=== PATIENT | female | born 1970 | race African-American/Black ===

== ENCOUNTER 2021-02-09 07:56 | Outpatient (REF) | payer OTHER, SELFPAY ==
--- NOTE | ~2021-02-09 | MM_ITS ---
EXAMINATION: MM SCREENING DIGITAL BREAST TOMOSYNTHESIS, BILATERAL CLINICAL INFORMATION: Screening. Asymptomatic. The lifetime risk of breast cancer based on the Tyrer-Cuzick Model is 10%. COMPARISON: Mammography: 02/04/2020, 01/29/2019, 01/08/2018 TECHNIQUE: Digital breast tomosynthesis is performed in both the craniocaudal and mediolateral oblique views along with computer-aided detection (CAD). Synthesized 2D images are generated from the tomosynthesis. FINDINGS: There are scattered areas of fibroglandular density (ACR BI-RADS breast composition Category b). Parenchymal pattern is similar to prior studies. There is stable smooth nodule central right breast mid depth. Again, there are numerous calcifications greatest regional upper outer left breast and regional central and inner right breast. There is no interval mass or architectural abnormality or abnormal calcifications. The axilla and skin contours are unremarkable. MM/MM tomosynthesis screening BI IMPRESSION: No significant changes from prior exams. ASSESSMENT: BI-RADS 2: Benign RECOMMENDATION: Routine annual mammography screening. This patient's information was entered into a reminder system with a target due date for their next mammogram.
== END 2021-02-09 07:57 | disposition home or self-care (01) ==
LOC: HO.MAMMO 07:56
PROVIDERS: PCP Internal Medicine; Visit Provider Internal Medicine
DX: Z12.31 Encounter for screening mammogram for malignant neoplasm of breast (principal)
CPT/HCPCS: 77063; 77067

== ENCOUNTER 2022-02-15 07:48 | Outpatient (REF) | payer OTHER, SELFPAY ==
--- NOTE | ~2022-02-15 | MM_ITS ---
EXAMINATION: MM SCREENING DIGITAL BREAST TOMOSYNTHESIS, BILATERAL CLINICAL INFORMATION: Screening. Asymptomatic. The lifetime risk of breast cancer based on the Tyrer-Cuzick Model is 9%. COMPARISON: Mammography: 02/09/2021, 02/04/2020, 01/29/2019 TECHNIQUE: Digital breast tomosynthesis is performed in both the craniocaudal and mediolateral oblique views along with computer-aided detection (CAD). Synthesized 2D images are generated from the tomosynthesis. FINDINGS: There are scattered areas of fibroglandular density (ACR BI-RADS breast composition Category b). Parenchymal pattern is similar to prior exam. There is a stable nodule central right breast mid depth. Regional calcifications again seen mid upper outer left breast and central inner right breast. There is no developing density or interval mass or architectural abnormality. No interval abnormal calcifications. The axilla and skin contours are unremarkable. MM/MM tomosynthesis screening BI IMPRESSION: No significant changes from prior exams. ASSESSMENT: BI-RADS 2: Benign RECOMMENDATION: Routine annual mammography screening. This patient's information was entered into a reminder system with a target due date for their next mammogram.
== END 2022-02-15 07:49 | disposition home or self-care (01) ==
LOC: HO.MAMMO 07:48
PROVIDERS: Visit Provider Internal Medicine
DX: Z12.31 Encounter for screening mammogram for malignant neoplasm of breast (principal)
CPT/HCPCS: 77063; 77067

== ENCOUNTER 2023-02-21 07:31 | Outpatient (REF) | payer OTHER, SELFPAY ==
--- NOTE | ~2023-02-21 | MM_ITS ---
EXAMINATION: MM SCREENING DIGITAL BREAST TOMOSYNTHESIS, BILATERAL CLINICAL INFORMATION: Screening. Asymptomatic. The lifetime risk of breast cancer based on the Tyrer-Cuzick Model is 11.5%. COMPARISON: Mammography: This study is compared with prior exams dating back to 2019. TECHNIQUE: Digital breast tomosynthesis is performed in both the craniocaudal and mediolateral oblique views along with computer-aided detection (CAD). Synthesized 2D images are generated from the tomosynthesis. FINDINGS: There are scattered areas of fibroglandular density (ACR BI-RADS breast composition Category b). There are no significant masses, abnormal calcifications, or other abnormalities. Few, bilateral, benign calcifications are present in each breast. MM/MM tomosynthesis screening BI IMPRESSION: No mammographic evidence of malignancy. ASSESSMENT: BI-RADS BI-RADS 2 - Benign Findings RECOMMENDATION: Routine annual mammography screening. 1 year F/U This examination should not preclude the clinical evaluation of a suspicious palpable abnormality. This patient's information was entered into a reminder system with a target due date for their next mammogram.
== END 2023-02-21 07:32 | disposition home or self-care (01) ==
LOC: HO.MAMMO 07:31
PROVIDERS: PCP Internal Medicine; Visit Provider Internal Medicine
DX: Z12.31 Encounter for screening mammogram for malignant neoplasm of breast (principal)
CPT/HCPCS: 77063; 77067

== ENCOUNTER → 2023-02-21 07:45 | Outpatient (BNV) | payer OTHER, SELFPAY | PROVIDERS: PCP Internal Medicine; Visit Provider Radiology Diagnostic Radiology | DX: Z12.31 Encounter for screening mammogram for malignant neoplasm of breast (principal) | CPT/HCPCS: 77063; 77067 ==

== ENCOUNTER 2024-03-15 08:01 | Outpatient (REF) | payer OTHER, SELFPAY ==
--- NOTE | ~2024-03-15 | MM_ITS ---
EXAMINATION: MM SCREENING DIGITAL BREAST TOMOSYNTHESIS, BILATERAL CLINICAL INFORMATION: Screening. Asymptomatic. COMPARISON: Mammography: Prior exams available for comparison TECHNIQUE: Digital breast tomosynthesis is performed in both the craniocaudal and mediolateral oblique views along with computer-aided detection (CAD). Synthesized 2D images are generated from the tomosynthesis. FINDINGS: There are scattered areas of fibroglandular density (ACR BI-RADS breast composition Category b). Left: There is a focal asymmetry in the upper-outer breast middle depth. No suspicious calcifications or other abnormal findings. Right: No significant masses, abnormal calcifications, or other abnormalities. MM/MM tomosynthesis screening BI IMPRESSION: Left: Focal asymmetry in the upper-outer breast. Additional imaging and possible ultrasound recommended at this time. Right: Negative. ASSESSMENT: BI-RADS BI-RADS 0 - Incomplete: Needs additional Imaging. RECOMMENDATION: 1. Additional views of the left breast and possible ultrasound 2. Targeted ultrasound if warranted after review of the additional views. 3. Radiology department staff will contact the patient for additional imaging. Additional Imaging required This examination should not preclude the clinical evaluation of a suspicious palpable abnormality. This patient's information was entered into a reminder system with a target due date for their next mammogram. Electronically signed by: Kerri Matos DO 04/08/2024 04:28 PM EDT
== END 2024-03-15 08:02 | disposition home or self-care (01) ==
LOC: HO.MAMMO 08:01
PROVIDERS: PCP Internal Medicine; Visit Provider Internal Medicine
DX: Z12.31 Encounter for screening mammogram for malignant neoplasm of breast (principal)
CPT/HCPCS: 77063; 77067

== ENCOUNTER → 2024-03-15 08:15 | Outpatient (BNV) | payer OTHER, SELFPAY | PROVIDERS: PCP Internal Medicine; Visit Provider Internal Medicine | DX: Z12.31 Encounter for screening mammogram for malignant neoplasm of breast (principal) | CPT/HCPCS: 77063; 77067 ==

== ENCOUNTER 2024-05-10 13:50 | Outpatient (REF) | payer OTHER, SELFPAY ==
--- NOTE | ~2024-05-10 | US_ITS ---
EXAMINATION: MM DIAGNOSTIC DIGITAL BREAST TOMOSYNTHESIS, LEFT US BREAST LIMITED, LEFT MAMMOGRAPHY: CLINICAL INFORMATION: Diagnostic: Evaluate focal asymmetry upper outer left breast middle one third depth seen on screening exam . COMPARISON: Mammography: Screening mammography 03/15/2024, 02/21/2023, and exams dating back to 10/21/2014. TECHNIQUE: Digital left breast tomosynthesis is performed following views: 3-D spot compression left CC and MLO views. Computer-aided diagnosis was used for this study. FINDINGS: There are scattered areas of fibroglandular density (ACR BI-RADS breast composition Category b). Focal asymmetry in the upper outer quadrant of the left breast persists on spot compression views and appears as a lobular isodense masslike region with associated underlying benign-appearing calcifications, measuring an estimated 17 x 9 mm. In retrospect this has been present on exams dating back to 2018 and is relatively unchanged. This will be evaluated with ultrasound. ULTRASOUND: CLINICAL INFORMATION: As above. COMPARISON: No prior left ultrasound. TECHNIQUE: Targeted sonographic evaluation was performed using a high frequency linear transducer. Attention was given to the upper-outer quadrant of left breast to include the mammographic abnormality. Selected archived documentation. FINDINGS: LEFT BREAST: There is a mixture of fatty and fibroglandular tissue. No discrete suspicious mass is seen. There is no pathologic acoustic shadowing. There is no gross cystic abnormality. There are tiny reflectors present in the breast fat and fibrous Elroy's ligaments, consistent with the benign calcifications which have been present over numerous years. Masslike focus on the mammography correlates with linear echogenic fibrous tissue on ultrasound with normal fatty lobules. There are no findings that are suspicious for malignancy. US/US breast LT limited mamm only IMPRESSION: No findings suspicious for malignancy. Benign findings on sonography and mammography left breast. Recommend the patient return to routine annual screening. OVERALL ASSESSMENT: Mammography: BI-RADS 2 - Benign Findings Ultrasound: BI-RADS 2 - Benign Findings RECOMMENDATION: 1 year F/U This patient's information was entered into a reminder system with a target due date for their next mammogram. Electronically signed by: Timi Puckett MD 05/10/2024 04:19 PM EDT
== END 2024-05-10 13:51 | disposition home or self-care (01) ==
LOC: HO.MAMMO 13:50
PROVIDERS: PCP Internal Medicine; Visit Provider Internal Medicine
DX: N64.89 Other specified disorders of breast (principal)
CPT/HCPCS: 76642; 77061; 77065

== ENCOUNTER → 2024-05-10 14:00 | Outpatient (BNV) | payer OTHER, SELFPAY | PROVIDERS: PCP Internal Medicine; Visit Provider Radiology Diagnostic Radiology | DX: R92.322 Mammographic fibroglandular density, left breast (principal); R92.312 Mammographic fatty tissue density, left breast | CPT/HCPCS: 76642; 77061; 77065 ==

== ENCOUNTER 2025-04-14 15:40 | Outpatient (REF) | payer OTHER, SELFPAY ==
--- OUTSIDE RECORDS SUMMARY | 2024-08-12 12:00 | XMS_ITS ---
Author Organization [facility] [place] Address [address] [facility] [address] [place] [address] Care Team Providers Care Hospitality Coordinator Name Role Phone Elkin Mcmullen Unavailable [phone] REASON FOR VISIT Follow-up Appt Encounters Encounter Location Date Provider Diagnosis [address] [place] [address] 08/12/2024 Elkin Mcmullen Plan Of Treatment Next Appt Details Provider Name:Jeannine Vega, 06/06/2025 11:00:00 AM, [address] [facility], [address], [place], [address], [phone] Progress Notes * CAMACHO CUTLEROB:[birth year] (54 yo F)Acc No.[id number]:08/12/2024 Progress Notes Patient: ANNI VASQUEZ Provider: Miah GUILLORY :1970 A ge:53 Y S ex:Female Date:08/12/2024 Address:[address] [place], [place] [phone] Subjective: * Chief Complaints: * F ollow-up Appt * Ocular Surgical History: Objective: Vision Examination: * Electronic signature of Malik Mcmullen PA-C on 04/14/2025 at 06:44 PM EDT Sign off status: Pending * Provider: Miah GUILLORY Date: 0 08/12/2024 Generated for Printi ng/Faxing/eTransmitting on: 0 04/14/2025 06:44 PM EDT
--- OUTSIDE RECORDS SUMMARY | 2024-11-08 05:45 | XMS_ITS ---
Author Organization [facility] [place] Address [address] [facility] [address] [place] [address] Care Team Providers Care Manager Brand Name Role Phone Migration, Provider Unavailable Unavailable REASON FOR VISIT Follow-up Appt Encounters Encounter Location Date Provider Diagnosis [address] [place] [address] 11/08/2024 Provider Migration Plan Of Treatment Next Appt Details Provider Name:Jeannine Vega, 06/06/2025 11:00:00 AM, [address] [place] [address], [address] [facility], [place], [address], [phone] Progress Notes * CAMACHO CUTLEROB:[birth year] (54 yo F)Acc No.[id number]:11/08/2024 Progress Notes Patient: ANNI VASQUEZ Provider: Gino fernándezder Migration :1970 A ge:53 Y S ex:Female Date:11/08/2024 Address:[address] [place], [place] [phone] Subjective: * Chief Complaints: * F ollow-up Appt * Ocular Surgical History: Objective: Vision Examination: * Electronic signature of Prov ider Migration on 04/14/2025 at 06:45 PM EDT Sign off status: Pending * Provider: Gino fernándezder Migration Date: 11/08/2024 Generated for Printi ng/Faxing/eTransmitting on: 0 04/14/2025 06:45 PM EDT
--- OUTSIDE RECORDS SUMMARY | 2024-11-08 05:45 | XMS_ITS ---
Author Organization [facility], [place] Address [address] [facility] [address] [place] [address] Care Team Providers Care Cad Design Engineer Name Role Phone Elkin Mcmullen Unavailable [phone] REASON FOR VISIT Follow-up Appt Encounters Encounter Location Date Provider Diagnosis [address] [place] [phone] 11/08/2024 Elkin Mcmullen Plan Of Treatment Next Appt Details Provider Name:Jeannine Vega, 06/06/2025 11:00:00 AM, [address] [facility], [address], [place], [address], [phone] Progress Notes * CAMACHO CUTLEROB:[birth year] (54 yo F)Acc No.[id number]:11/08/2024 Progress Notes Patient: ANNI VASQUEZ Provider: Miah GUILLORY :1970 A ge:53 Y S ex:Female Date:11/08/2024 Address:[address] [place], [place] [phone] Subjective: * Chief Complaints: * F ollow-up Appt * Ocular Surgical History: Objective: Vision Examination: * Electronic signature of Malik Mcmullen PA-C on 04/14/2025 at 06:44 PM EDT Sign off status: Pending * Provider: Miah GUILLORY Date: 0 11/08/2024 Generated for Printi ng/Faxing/eTransmitting on: 0 04/14/2025 06:44 PM EDT
--- OUTSIDE RECORDS SUMMARY | 2024-12-06 07:45 | XMS_ITS ---
Author Organization [facility] [place] Address [address] [facility] [address] [place] [address] Care Team Providers Care Caddie Supervisor Name Role Phone Elkin Mcmullen Unavailable [phone] REASON FOR VISIT Follow-up Appt Encounters Encounter Location Date Provider Diagnosis [address] [place] [address] 12/06/2024 Elkin Mcmullen Plan Of Treatment Next Appt Details Provider Name:Jeannine Vega, 06/06/2025 11:00:00 AM, [address] [facility], [address], [place], [address], [phone] Progress Notes * CAMACHO CUTLEROB:[birth year] (54 yo F)Acc No.[id number]:12/06/2024 Progress Notes Patient: ANNI VASQUEZ Provider: Miah GUILLORY :1970 A ge:54 Y S ex:Female Date:12/06/2024 Address:[address] [place], [place] [phone] Subjective: * Chief Complaints: * F ollow-up Appt * Ocular Surgical History: Objective: Vision Examination: * Electronic signature of Malik Mcmullen PA-C on 04/14/2025 at 06:45 PM EDT Sign off status: Pending * Provider: Miah GUILLORY Date: 0 12/06/2024 Generated for Printi ng/Faxing/eTransmitting on: 0 04/14/2025 06:45 PM EDT
--- OUTSIDE RECORDS SUMMARY | 2025-03-18 12:00 | XMS_ITS ---
Author Organization [facility] [place] Address [address] [facility] [address] [place] [address] Care Team Providers Care Weaver Dobby Loom Name Role Phone Jeannine Vega [phone] Allergies Allergen (clinical drug ingredient) Drug/Non Drug Allergy documented on EMR Reaction Allergy Type Onset Date Status paroxetine PARoxetine Unknown Drug Allergy Activ e REASON FOR VISIT Telehealth Medications Medication SIG (Take, Route, Frequency, Duration) Notes Start Date End Date Status Atovaquone-Proguanil HCl 62.5-25 MG Tablet as directed Orally Acti ve Mirtazapine 7.5 MG Tablet 1 tablet at be dtime Orally Once a day Active Encounters Encounter Location Date Provider Diagnosis [facility], [address] [place] [phone] 03/18/2025 Jeannine Silvia Plan Of Treatment Next Appt Details Provider Name:Jeannine Vega, 06/06/2025 11:00:00 AM, [address] [place] [address], [place], [address], [phone] Progress Notes * SHAUNA CUTLEREDOB:[birth year] (54 yo F)Acc No.[id number]:03/18/2025 Patient: Maral ANNI SONI Provider: Mirtha Vega :1970 A ge:54 Y S ex:Female Date:03/18/2025 Address:[address] [place], [place] [phone] Subjective: * Chief Complaints: * T [facility] * Medications: T akingMirtazapine 7.5 MG Tablet 1 tablet at bedtime Orally Once a day Atovaquone-Proguanil HCl 62.5-25 MG Tablet as directed Orally Taking Mirtazapine 7.5 MG Tablet 1 tablet at bedtime Orally Once a day Taking Atovaquone-Proguanil HCl 62.5-25 MG Tablet as directed Orally * Allergies: P ARoxetine Billing Information: * Procedure Codes: * Electronic signature of Maria E Vega on 04/14/2025 at 06:45 PM EDT Sign off status: Pending * Provider: Mirtha Vega Date: 0 03/18/2025 Generated for Jase borrego/Harvey/Red on: 0 04/14/2025 06:45 PM EDT
--- NOTE | ~2025-04-14 | MM_ITS ---
EXAMINATION: MM SCREENING DIGITAL BREAST TOMOSYNTHESIS, BILATERAL CLINICAL INFORMATION: Screening. Asymptomatic. COMPARISON: Comparison made to multiple prior, most recent left diagnostic mammogram on May 10, 2024, and most remote January 08, 2018. TECHNIQUE: Digital breast tomosynthesis is performed in mediolateral oblique and craniocaudal views along with computer-aided detection (CAD). Synthesized 2D images are generated from the tomosynthesis. FINDINGS: BREAST COMPOSITION: There are scattered areas of fibroglandular density (ACR BI-RADS breast composition Category b). RIGHT BREAST: No significant masses, suspicious calcifications or other abnormalities are seen. LEFT BREAST: Focal asymmetry in the upper outer quadrant middle depth is similar to 2018. No significant masses, suspicious calcifications or other abnormalities are seen. MM/MM tomosynthesis screening BI IMPRESSION: BILATERAL BREASTS: Benign, no mammographic evidence of malignancy. Normal interval follow-up is recommended in 12 months. ASSESSMENT: BI-RADS 2 - Benign Findings RECOMMENDATION: Routine annual mammography screening. FOLLOW-UP: 1 year F/U This examination should not preclude the clinical evaluation of a suspicious palpable abnormality. This patient's information was entered into a reminder system with a target due date for their next mammogram. Electronically signed by: Driss Gould MD 04/18/2025 07:53 PM EDT
--- OUTSIDE RECORDS SUMMARY | 2025-04-14 18:45 | XMS_ITS | Patient Health Record ---
Author Organization [facility] [place] Address [address] [place] [address] Care Team Providers Care Chemist Assistant Name Role Phone Aurelia MCLAIN, Reji Primary Care Provider Stacey Isaac Unavailable [phone] Allergies Allergen (clinical drug ingredient) Drug/Non Drug Allergy documented on EMR Reaction Allergy Type Onset Date Status Latex Latex (uncoded) sensitive Allergy Acti ve Reason For Referral No Information Medications Medication SIG (Take, Route, Fr equency, Duration) Notes Start Date End Date Status Naproxen 500 MG 1 tablet with food o r milk as needed Orally every 12 hrs Active Social History Tobacco Use: Social History Observation Description Date Details (start date - stop date) Never Smoker NA - NA Tobacco Use/Smoking Question Answer Notes Are you a: nonsmoker Additional Findings: Tobacco Non-User Aggressive non-smoker Alcohol Screen Question Answer Notes Did you have a drink contain ing alcohol in the past year? Yes Points 1 Interpretation Negative How often did you have 6 or more drinks on one occasion in the past year? Never (0 point) How many drinks did you have on a typical day when you were drinking in the past year? 1 or 2 drinks (0 point) How often did you have a dri nk containing alcohol in the past year? Monthly or less (1 point) Tobacco use other than smoking: Question Answer Notes Are you an other tobacco user? No Plan Of Treatment No Information Insurance Providers Payer Name Payer Address Payer Phone Subscriber Number Group Number Insured Name Patient Relationship to Insured Coverage Start Date Coverage End Date [facility] [address] [place] [address] [id number] Self - patient is the insured Medical (General) History Medical History History ICD Code Chicken pox Surgical History Surgery Date(Month/Year) Meniscus repair 03/2017
--- OUTSIDE RECORDS SUMMARY | 2025-04-14 18:45 | XMS_ITS | Patient Health Record ---
Author Organization [facility] [place] Address [address] [facility] [address] [place] [address] Care Team Providers Care A/C Technician Name Role Phone Elkin Mcmullen Unavailable [phone] Migration, Provider Unavailable Unavailable Jeannine Vega Unavailable [phone] Allergies Allergen (clinical drug ingredient) Drug/Non Drug Allergy documented on EMR Reaction Allergy Type Onset Date Status paroxetine PARoxetine Unknown Drug Allergy Activ e Reason For Referral No Information Medications Medication SIG (Take, Route, Frequency, Duration) Notes Start Date End Date Status Atovaquone-Proguanil HCl 62.5-25 MG Tablet as directed Orally Acti ve Mirtazapine 7.5 MG Tablet 1 tablet at be dtime Orally Once a day Active Encounters Encounter Location Date Provider Diagnosis [facility] [place] [address] [address] 08/09/2024 Provider Migration [facility] [place] [address] [address] 08/12/2024 Elkin Mcmullen [facility] [place] [address] [address] 11/08/2024 Provider Migration [facility] [place] [address] [address] 11/08/2024 Elkin Mcmullen [facility] [place] [address] [address] 12/06/2024 Elkin Mcmullen [facility] [place] [address] [address] 03/18/2025 Jeannine Vega Plan Of Treatment Next Appt Details Provider Name:Jeannine Vega, 06/06/2025 11:00:00 AM, [address] [address], [place], [address], [phone] Insurance Providers Payer Name Payer Address Payer Phone Subscriber Number Group Number Insured Name Patient Relationship to Insured Coverage Start Date Coverage End Date [facility] [address] [facility] [address] [facility] [place] [address] [phone] [id number] ANNI CUTLER Self - patient is the insured
--- OUTSIDE RECORDS SUMMARY | 2025-04-14 18:46 | XMS_ITS | Clinical Summary ---
Author Organization [facility] Address [address] [place] [address] Care Team Providers Care Dance Choreographer Name Role Phone Unavailable Primary Care Provider Unavailabl e Social History Tobacco Use Types Packs/Day Years Used Date Smoking Tobacco: Never Assessed Sex and Gender Information Value Date Recorded Sex Assigned at Not on file Gender Identity Not on file Sexual Orientation Not on file Plan of Treatment Not on file
== END 2025-04-14 15:41 | disposition home or self-care (01) ==
LOC: HO.MAMMO 15:40
PROVIDERS: Visit Provider Internal Medicine
DX: Z12.31 Encounter for screening mammogram for malignant neoplasm of breast (principal)
CPT/HCPCS: 77063; 77067

== ENCOUNTER → 2025-04-14 16:15 | Outpatient (BNV) | payer OTHER, SELFPAY | PROVIDERS: Visit Provider Radiology Body Imaging | DX: Z12.31 Encounter for screening mammogram for malignant neoplasm of breast (principal) | CPT/HCPCS: 77063; 77067 ==